=== PATIENT | male | born 1990 | race African-American/Black ===

== ENCOUNTER 2018-03-27 05:23 | Emergency (ER) | payer OTHER ==
[2018-03-27 06:00] VITALS: BP_SYST 133
[2018-03-27 06:11] VITALS: BP_SYST 133
== END 2018-03-27 06:11 ==
LOC: SED 05:23
DX: R10.9 Unspecified abdominal pain (principal); R06.02 Shortness of breath; V89.2XXA Person injured in unspecified motor-vehicle accident, traffic, initial encounter; Y93.89 Activity, other specified; Y92.410 Unspecified street and highway as the place of occurrence of the external cause; Y99.8 Other external cause status
CPT/HCPCS: 99283